=== PATIENT | female | born 1995 | race Caucasian/White ===

== ENCOUNTER 2020-04-30 11:08 | Emergency (ER) | payer SELFPAY ==
[~2020-04-30] VITALS: Ht 167.6 cm; Wt 53.8 kg
[2020-04-30 11:19] VITALS: BP 117/75
[2020-04-30] MEDS ORDERED: AZITHROMYCIN 500 MG TABLET ONE (11:44)
[2020-04-30] MEDS ORDERED: CEFTRIAXONE 250 MG ONE (11:45)
[2020-04-30] MEDS ORDERED: AZITHROMYCIN 500 MG TABLET PO ONE (12:00)
[2020-04-30] MEDS ORDERED: CEFTRIAXONE 250 MG IM ONE (12:00)
== END 2020-04-30 12:00 | disposition home or self-care (01) ==
LOC: ED 11:52 → EDBD 11:52 → ED 12:00
DX: N89.8 Other specified noninflammatory disorders of vagina (principal); A54.9 Gonococcal infection, unspecified
CPT/HCPCS: 96372; 99283; J0696